=== PATIENT | female | born 1960 | race Two or more races ===

== ENCOUNTER 2018-02-02 13:36 | Outpatient (CLI) | payer OTHER ==
[~2018-02-02 13:36] MED LIST: AQUASOL E15 IU/0.3; ATORVASTATIN CA20 MG; AZITHROMYCIN500 MG PO; CONEX TABLET1 EACH PO; TIROSINT25 MCG; TUSICOF LIQUID120 ML PO; ULTRAM50 MG PO
== END 2018-02-02 13:51 | disposition home or self-care (01) ==
LOC: SONOGRAMA 13:36 → MAMO-SONO 14:15
DX: E04.1 Nontoxic single thyroid nodule (principal)